=== PATIENT | female | born 1970 ===

== ENCOUNTER 2018-10-28 07:43 | Outpatient (CLI) | payer BC ==
--- NOTE | 2018-10-28 11:06 | ULT ---
BILATERAL BREAST ULTRASOUND: DATE: 10/28/2018. PROVIDED CLINICAL HISTORY: Bilateral breast pain. FINDINGS: Correlation is made with the screening mammogram dated 10/20/2018. There are occasional benign-appeari ng cysts seen within each breast. The right axillary region appears unremarkable. No concerning son ographic findings are evident. IMPRESSION: No sonographic findings to explain the patient's breast pain and right axillary pain. Negative imagi ng findings should not preclude further evaluation of a clinically suspicious area. The patient is r eferred back to her clinician. POS: OFF
== END 2018-10-28 07:44 | disposition home or self-care (01) ==
LOC: BICULT 07:43
PROVIDERS: ATTEND Obstetrics & Gynecology
DX: N64.4 Mastodynia (principal); N63.20 Unspecified lump in the left breast, unspecified quadrant